=== PATIENT | male | born 1950 | race African-American/Black ===

== ENCOUNTER → 2017-11-14 | Outpatient (CLI) | payer BC, MEDICARE ==
[~2017-11-14] MED LIST: CARV25TA47 PO; HYDR-4134 PO
== END | disposition home or self-care (01) ==
LOC: LAB 08:49
PROVIDERS: ATTEND Surgery
DX: K80.80 Other cholelithiasis without obstruction (principal)
CPT/HCPCS: 36415; 82565; 84520

== ENCOUNTER → 2017-11-16 | Outpatient (CLI) | payer BC | END | disposition home or self-care (01) | LOC: CT 08:21 | PROVIDERS: ATTEND Surgery | DX: K80.80 Other cholelithiasis without obstruction (principal); N28.1 Cyst of kidney, acquired; J90 Pleural effusion, not elsewhere classified | CPT/HCPCS: 74176 ==

== ENCOUNTER 2024-01-19 07:16 | Inpatient (IN) | payer MEDICARE, OTHER ==
[~2024-01-19] VITALS: Ht 193 cm; Wt 109.8 kg
[~2024-01-19 07:16] MED LIST changes: +FERR325T6 PO; -HYDR-4134 PO; +HYDR25TA78 PO; +ISOS30TA12 PO; +PROT40 PO; +PSYL1PAC11 PO; +SUCR1TAB PO
[2024-01-19] MEDS: FUROSEMIDE 40MG/4ML VIAL IVP ONE (08:00)
[2024-01-19 08:20] LABS: BASOPHILS % 0.4 % (0.0-2.0); EOSINOPHILS % 0.8 % (0.0-5.0); HEMATOCRIT. 36.5 % (42.0-52.0); MEAN CORPUSCULAR HEMOGLOBIN 30.9 pg (28.0-32.0); MEAN CORPUSCULAR HGB CONC 32.8 g/dL (31.0-37.0); MEAN CORPUSCULAR VOLUME 94.1 fL (80.0-94.0); MEAN PLATELET VOLUME 10.9 fl (7.4-10.4); MONOCYTES % 4.1 % (2.0-8.0); NEUTROPHILS % 85.7 % (40.0-76.0); PLATELET 132 x1000/uL (130-400); RED BLOOD CELL COUNT 3.88 mill/uL (4.7-6.1); RED CELL DISTRIBUTION WIDTH 15.2 % (11.6-14.6); WHITE BLOOD COUNT 6.1 x1000/uL (4.5-11.0)
[2024-01-19 08:26] LABS: CHLORIDE 116 mEq/L (98-107); POTASSIUM 3.7 mEq/L (3.5-5.1); SODIUM 147 mEq/L (136-145)
[2024-01-19 08:27] LABS: CALCIUM 9.6 mg/dL (8.7-10.4); CARBON DIOXIDE 26 mEq/L (21-32)
[2024-01-19 08:32] LABS: GLUCOSE 119 mg/dL (70-105); UREA NITROGEN BLOOD 45 mg/dL (9-23)
[2024-01-19 08:38] LABS: CREATININE 2.4 mg/dL (0.6-1.3)
[2024-01-19 08:39] LABS: TROPONIN I HIGH SENSITIVITY 149 ng/L (3.0-53)
[2024-01-19] MEDS: CEFTRIAXONE 2GM/50ML 50 ML IV ONE (09:02)
[2024-01-19] MEDS: AZITHROMYCIN 500MG/250ML 250 ML IV SCH (09:02)
[2024-01-19] MEDS ORDERED: ONDANSETRON HCL 4MG/2ML INJ IV PRN (10:45)
[2024-01-19] MEDS ORDERED: FUROSEMIDE 40MG/4ML VIAL IVP SCH (10:45)
[2024-01-19 11:48] LABS: TROPONIN I HIGH SENSITIVITY 142 ng/L (3.0-53)
[2024-01-19 12:25] LABS: CREATINE KINASE MB FRACTION 2.9 ng/mL (0.5-3.6)
[2024-01-19] MEDS ORDERED: AMOX1TAB16 PO (17:12)
[2024-01-19] MEDS ORDERED: FURO40TA5 PO (17:12)
[2024-01-19] MEDS ORDERED: APIX5TAB PO (17:12)
[2024-01-19] MEDS: FUROSEMIDE 40MG/4ML VIAL IVP SCH (17:38)
[2024-01-19] MEDS: APIXABAN 5 MG TABLET PO SCH (17:38)
[2024-01-19 18:00] VITALS: BP 135/99; PULSE 91; RESP 20; TEMP 96.5
[2024-01-19 18:28] VITALS: BP 135/99; PULSE 91; RESP 20; TEMP 96.5
[2024-01-19] MEDS: ACETAMINOPHEN 325MG TABLET PO PRN (18:52)
[2024-01-19 20:00] VITALS: BP 154/111; PULSE 76; RESP 18; TEMP 98.2
[2024-01-19] MEDS: CARVEDILOL 12.5MG TABLET PO SCH (21:03)
[2024-01-20] VITALS (7 sets, daily range): BP systolic 124–152; BP diastolic 88–113; PULSE 69–89; RESP 16–18; TEMP 96.4–98.1
[2024-01-20 07:09] LABS: BASOPHILS % 0.5 % (0.0-2.0); EOSINOPHILS % 1.1 % (0.0-5.0); HEMATOCRIT. 35.5 % (42.0-52.0); HEMOGLOBIN. 11.4 g/dL (14.0-18.0); LYMPHOCYTES % 12.7 % (20.0-50.0); MEAN CORPUSCULAR HEMOGLOBIN 30.2 pg (28.0-32.0); MEAN CORPUSCULAR VOLUME 94.4 fL (80.0-94.0); MEAN PLATELET VOLUME 11.7 fl (7.4-10.4); MONOCYTES % 5.5 % (2.0-8.0); NEUTROPHILS % 80.2 % (40.0-76.0); PLATELET 129 x1000/uL (130-400); RED BLOOD CELL COUNT 3.76 mill/uL (4.7-6.1); RED CELL DISTRIBUTION WIDTH 15.2 % (11.6-14.6); WHITE BLOOD COUNT 5.8 x1000/uL (4.5-11.0)
[2024-01-20 07:16] LABS: CHLORIDE 112 mEq/L (98-107); POTASSIUM 4.1 mEq/L (3.5-5.1); SODIUM 146 mEq/L (136-145)
[2024-01-20 07:17] LABS: CALCIUM 9.6 mg/dL (8.7-10.4); CARBON DIOXIDE 26 mEq/L (21-32)
[2024-01-20 07:22] LABS: CREATININE 2.5 mg/dL (0.6-1.3); GLUCOSE 124 mg/dL (70-105); UREA NITROGEN BLOOD 35 mg/dL (9-23)
[2024-01-20 07:25] LABS: PHOSPHORUS 3.6 mg/dL (2.5-4.9)
[2024-01-20 08:23] LABS: DIFFERENTIAL COMMENT 1
[2024-01-20] MEDS: ASPIRIN 81MG TABLET PO SCH (09:28)
[2024-01-20] MEDS: AMLODIPINE 10MG TABLET PO SCH (16:49)
[2024-01-20] MEDS: FUROSEMIDE 40MG/4ML VIAL IVP SCH (16:49)
[2024-01-21] VITALS (7 sets, daily range): BP systolic 109–134; BP diastolic 60–93; PULSE 78–86; RESP 16–20; TEMP 96.3–97.8
[2024-01-21 06:51] LABS: CALCIUM 9.4 mg/dL (8.7-10.4); CHLORIDE 110 mEq/L (98-107); POTASSIUM 3.5 mEq/L (3.5-5.1); SODIUM 147 mEq/L (136-145)
[2024-01-21 06:52] LABS: CARBON DIOXIDE 27 mEq/L (21-32); EOSINOPHILS % 3.6 % (0.0-5.0); HEMATOCRIT. 34.8 % (42.0-52.0); HEMOGLOBIN. 11.3 g/dL (14.0-18.0); LYMPHOCYTES % 17.3 % (20.0-50.0); MEAN CORPUSCULAR HEMOGLOBIN 30.5 pg (28.0-32.0); MEAN CORPUSCULAR HGB CONC 32.5 g/dL (31.0-37.0); MEAN CORPUSCULAR VOLUME 93.9 fL (80.0-94.0); MEAN PLATELET VOLUME 11.4 fl (7.4-10.4); MONOCYTES % 5.6 % (2.0-8.0); NEUTROPHILS % 72.5 % (40.0-76.0); PLATELET 122 x1000/uL (130-400); RED CELL DISTRIBUTION WIDTH 15.5 % (11.6-14.6); WHITE BLOOD COUNT 4.6 x1000/uL (4.5-11.0)
[2024-01-21 06:57] LABS: CREATININE 2.7 mg/dL (0.6-1.3); GLUCOSE 97 mg/dL (70-105)
[2024-01-21 06:58] LABS: UREA NITROGEN BLOOD 42 mg/dL (9-23)
[2024-01-21 07:00] LABS: PHOSPHORUS 4.8 mg/dL (2.5-4.9)
[2024-01-21 07:02] LABS: DIFFERENTIAL COMMENT 1
[2024-01-21] MEDS: AMLODIPINE 5MG TABLET PO SCH (08:55)
[2024-01-22] VITALS: BP 102/69; PULSE 69; RESP 16; TEMP 97.3
[2024-01-22 04:00] VITALS: BP 118/73; PULSE 70; RESP 18; TEMP 97.2
[2024-01-22 07:45] LABS: BASOPHILS % 0.9 % (0.0-2.0); EOSINOPHILS % 3.5 % (0.0-5.0); HEMOGLOBIN. 11.2 g/dL (14.0-18.0); LYMPHOCYTES % 16.5 % (20.0-50.0); MEAN CORPUSCULAR HEMOGLOBIN 30.5 pg (28.0-32.0); MEAN CORPUSCULAR VOLUME 95.6 fL (80.0-94.0); MEAN PLATELET VOLUME 10.9 fl (7.4-10.4); MONOCYTES % 6.9 % (2.0-8.0); NEUTROPHILS % 72.2 % (40.0-76.0); PLATELET 125 x1000/uL (130-400); RED BLOOD CELL COUNT 3.66 mill/uL (4.7-6.1); RED CELL DISTRIBUTION WIDTH 15.4 % (11.6-14.6)
[2024-01-22 08:00] LABS: POTASSIUM 3.5 mEq/L (3.5-5.1)
[2024-01-22 08:02] LABS: CALCIUM 9.3 mg/dL (8.7-10.4)
[2024-01-22 08:06] VITALS: BP_SYST 122; PULSE 70; RESP 20; TEMP 97.6
[2024-01-22 08:07] LABS: CREATININE 2.7 mg/dL (0.6-1.3)
[2024-01-22] MEDS: AMLODIPINE 2.5MG TABLET PO SCH (09:33)
[2024-01-22] MEDS ORDERED: FURO80TA87 MT (10:58)
[2024-01-22 12:04] VITALS: BP 140/88; PULSE 68; RESP 20; TEMP 98.6
[2024-01-22 13:18] VITALS: BP 140/88; PULSE 68; TEMP 98.6; O2SAT 94
== END 2024-01-22 14:20 | disposition home or self-care (01) | DRG 291 ==
LOC: ER 07:16 → 5WST 10:14 → EDBEDREQTM 10:18 → EDBEDREQ 10:18 → 8WST 16:41
PROVIDERS: ADMIT Internal Medicine Pulmonary Disease; ATTEND Internal Medicine Pulmonary Disease
DX: I13.2 Hypertensive heart and chronic kidney disease with heart failure and with stage 5 chronic kidney disease, or end stage renal disease (principal); I50.23 Acute on chronic systolic (congestive) heart failure; N18.6 End stage renal disease; E87.0 Hyperosmolality and hypernatremia; N17.9 Acute kidney failure, unspecified; I42.9 Cardiomyopathy, unspecified; I71.21 Aneurysm of the ascending aorta, without rupture; E78.5 Hyperlipidemia, unspecified; J45.909 Unspecified asthma, uncomplicated; Z95.828 Presence of other vascular implants and grafts; M48.061 Spinal stenosis, lumbar region without neurogenic claudication; M10.9 Gout, unspecified; N28.89 Other specified disorders of kidney and ureter; Z86.718 Personal history of other venous thrombosis and embolism; Z95.810 Presence of automatic (implantable) cardiac defibrillator; Z82.49 Family history of ischemic heart disease and other diseases of the circulatory system; Z79.899 Other long term (current) drug therapy; Z79.01 Long term (current) use of anticoagulants
CPT/HCPCS: 36415; 71045; 71250; 80048; 82550; 82553; 83605; 83735; 83880; 84100; 84145; 84484; 85025; 86705; 93005; 99291; J0456; J0696; J1940